=== PATIENT | female | born 1960 | race Caucasian/White ===

== ENCOUNTER → 2017-01-27 | Outpatient (CLI) | payer OTHER ==
[2017-01-27 16:41] LABS: Urine Bilirubin Negative (Negative); Urine Blood Negative /uL (Negative); Urine Color Colorless (Yellow); Urine Glucose Normal (Normal); Urine Ketone Negative (Negative); Urine Nitrite Negative (Negative); Urine Urobilinogen Normal (Negative); Urine pH 7.5 (5.0-8.0)
[2017-01-27 16:42] LABS: Basophils # (auto) 0 uL; Basophils % (auto) 0.6 % (0.0-2.0); Eosinophils # (auto) 0 uL; Eosinophils % (auto) 0.9 % (0.0-7.0); Hematocrit 40.9 % (36.0-46.0); Hemoglobin 13.6 g/dL (12.2-16.2); Lymphocytes # (auto) 1.4 uL; Lymphocytes % (auto) 35.9 % (10.0-50.0); Mean Corpuscular Hemoglobin 31.2 pg (28.0-32.0); Mean Corpuscular Hgb Conc. 33.3 g/dL (32.0-36.0); Mean Corpuscular Volume 93.7 fL (80.0-100.0); Mean Platelet Volume 11.1 fL (7.4-10.4); Monocytes # (auto) 0.2 uL; Monocytes % (auto) 5.1 % (0.0-12.0); Neutrophils # (auto) 2.3 uL; Neutrophils % (auto) 57.5 % (37.0-80.0); Platelet Count (auto) 235 10^3/uL (140-450)
[2017-01-27 16:52] LABS: Partial Thromboplastin Time 31.5 sec (22.64-33.71); Prothrombin Time 10.8 sec (9.37-12.3)
[2017-01-27 17:03] LABS: BUN/Creatinine Ratio 26.4; Bilirubin, Direct 0.1 mg/dL (0-0.2); Bilirubin, Total 0.3 mg/dL (0.2-1.0); Calcium 8.9 mg/dL (8.5-10.1); Magnesium 2.3 mg/dL (1.6-2.6); Potassium 3.5 mmol/L (3.5-5.1)
== END | disposition home or self-care (01) ==
LOC: CHF HDHVI 11:11
PROVIDERS: ATTEND Internal Medicine Cardiovascular Disease
DX: I10 Essential (primary) hypertension (principal); E78.00 Pure hypercholesterolemia, unspecified; K74.1 Hepatic sclerosis; E11.9 Type 2 diabetes mellitus without complications; E03.9 Hypothyroidism, unspecified; D64.9 Anemia, unspecified; E55.9 Vitamin D deficiency, unspecified; N39.0 Urinary tract infection, site not specified; R79.1 Abnormal coagulation profile
CPT/HCPCS: 36415; 80048; 80061; 80076; 81003; 82306; 83735; 84443; 85025; 85610; 85730; 87086; 93005; G0463

== ENCOUNTER → 2017-02-18 | Outpatient (CLI) | payer OTHER ==
[2017-02-18 17:36] LABS: BUN/Creatinine Ratio 26.4; Calcium 8.8 mg/dL (8.5-10.1); Potassium 3.8 mmol/L (3.5-5.1)
== END | disposition home or self-care (01) ==
LOC: CHF HDHVI 15:06
PROVIDERS: ATTEND Internal Medicine Cardiovascular Disease
DX: I10 Essential (primary) hypertension (principal)
CPT/HCPCS: 36415; 80048

== ENCOUNTER → 2017-04-02 | Outpatient (CLI) | payer OTHER ==
[2017-04-02 12:27] LABS: Basophils # (auto) 0 uL; Basophils % (auto) 0.7 % (0.0-2.0); CONDITION Y; Eosinophils # (auto) 0.1 uL; Eosinophils % (auto) 1.3 % (0.0-7.0); Hematocrit 38.7 % (36.0-46.0); Hemoglobin 13.2 g/dL (12.2-16.2); Lymphocytes # (auto) 1.1 uL; Lymphocytes % (auto) 28.3 % (10.0-50.0); Mean Corpuscular Hemoglobin 31.2 pg (28.0-32.0); Mean Corpuscular Volume 91.8 fL (80.0-100.0); Mean Platelet Volume 9.6 fL (7.4-10.4); Monocytes # (auto) 0.3 uL; Monocytes % (auto) 7.8 % (0.0-12.0); Neutrophils # (auto) 2.4 uL; Neutrophils % (auto) 61.9 % (37.0-80.0); Platelet Count (auto) 270 10^3/uL (140-450); Red Cell Distribution Width 12.5 % (11.6-16.0); White Blood Cell 3.9 10^3/uL (4.4-10.8)
[2017-04-02 12:51] LABS: Albumin 3.9 g/dL (3.4-5.0); Alkaline Phosphatase 48 U/L (45-117); Anion Gap 6 (5-15); Aspartate Aminotransferase 16 U/L (15-37); BUN/Creatinine Ratio 28.6; Bilirubin, Direct < 0.1 mg/dL (0-0.2); Bilirubin, Total 0.3 mg/dL (0.2-1.0); Blood Urea Nitrogen 16 mg/dL (7-18); Carbon Dioxide 26 mmol/L (21-32); Chloride 101 mmol/L (98-107); Cholesterol 268 mg/dL (< 200); GFR African American 144 mL/min; GFR Non-African American 119 mL/min; Glucose 92 mg/dL (74-106); HDL Cholesterol 99 mg/dL (40-59); LDL Cholesterol 152 mg/dL (< 100); Magnesium 2.4 mg/dL (1.6-2.6); Sodium 133 mmol/L (136-145); Total Protein 7.2 g/dL (6.4-8.2); Triglycerides 40 mg/dL (< 150)
== END | disposition home or self-care (01) ==
LOC: CHF HDHVI 11:13
PROVIDERS: ATTEND Internal Medicine Cardiovascular Disease
DX: I10 Essential (primary) hypertension (principal); E03.9 Hypothyroidism, unspecified; E78.00 Pure hypercholesterolemia, unspecified; E83.40 Disorders of magnesium metabolism, unspecified; D64.9 Anemia, unspecified
CPT/HCPCS: 36415; 80048; 80061; 80076; 83735; 84443; 85025

== ENCOUNTER → 2017-06-18 | Outpatient (CLI) | payer OTHER ==
[2017-06-18 13:06] LABS: Basophils # (auto) 0 uL; Basophils % (auto) 0.9 % (0.0-2.0); Eosinophils # (auto) 0 uL; Eosinophils % (auto) 1.1 % (0.0-7.0); Hemoglobin 14.2 g/dL (12.2-16.2); Lymphocytes # (auto) 1.2 uL; Lymphocytes % (auto) 34.4 % (10.0-50.0); Mean Corpuscular Hemoglobin 29.9 pg (28.0-32.0); Mean Corpuscular Hgb Conc. 33.7 g/dL (32.0-36.0); Mean Corpuscular Volume 88.7 fL (80.0-100.0); Mean Platelet Volume 10.5 fL (6.9-10.8); Monocytes # (auto) 0.3 uL; Monocytes % (auto) 8.4 % (0.0-12.0); Neutrophils # (auto) 1.9 uL; Neutrophils % (auto) 55.2 % (37.0-80.0); Nucleated Red Blood Cells % 0.1 %; Platelet Count (auto) 247 10^3/uL (140-450); Red Cell Distribution Width 13.4 % (11.8-14.3); Urine Bilirubin Negative (Negative); Urine Blood Negative /uL (Negative); Urine Color Yellow (Yellow); Urine Glucose Normal (Normal); Urine Ketone Negative (Negative); Urine Nitrite Negative (Negative); Urine Urobilinogen Normal (Negative); White Blood Cell 3.4 10^3/uL (4.4-10.8)
[2017-06-18 13:24] LABS: Albumin 4.1 g/dL (3.4-5.0); BUN/Creatinine Ratio 30.2; Bilirubin, Direct 0.1 mg/dL (0-0.2); Bilirubin, Total 0.2 mg/dL (0.2-1.0); Calcium 9.4 mg/dL (8.5-10.1); Magnesium 2.4 mg/dL (1.6-2.6); Potassium 4.2 mmol/L (3.5-5.1); Total Protein 7.7 g/dL (6.4-8.2)
== END | disposition home or self-care (01) ==
LOC: CHF HDHVI 11:23
PROVIDERS: ATTEND Internal Medicine Cardiovascular Disease
DX: I10 Essential (primary) hypertension (principal); E78.00 Pure hypercholesterolemia, unspecified; K74.1 Hepatic sclerosis; E11.9 Type 2 diabetes mellitus without complications; E03.9 Hypothyroidism, unspecified; D64.9 Anemia, unspecified; E55.9 Vitamin D deficiency, unspecified; N39.0 Urinary tract infection, site not specified
CPT/HCPCS: 36415; 80048; 80061; 80076; 81003; 82306; 83036; 83735; 84443; 85025

== ENCOUNTER → 2020-09-19 | Outpatient (CLI) | payer BC | END | disposition home or self-care (01) | LOC: LAB 15:46 | PROVIDERS: ATTEND Obstetrics & Gynecology | DX: Z20.828 Contact with and (suspected) exposure to other viral communicable diseases (principal) | CPT/HCPCS: C9803; U0003 ==

== ENCOUNTER → 2020-12-10 | Outpatient (CLI) | payer BC | END | disposition home or self-care (01) | LOC: LAB 09:32 | PROVIDERS: ATTEND Physician Assistant | DX: Z20.822 Contact with and (suspected) exposure to COVID-19 (principal) ==

== ENCOUNTER → 2024-06-15 | Outpatient (CLI) | payer BC ==
[2024-06-15 14:10] LABS: Basophils # (auto) 0 10 ^3/uL (0-0.2); Basophils % (auto) 0.9 % (0.0-2.0); Eosinophils # (auto) 0.1 10 ^3/uL (0-0.8); Eosinophils % (auto) 1.2 % (0.0-7.0); Hemoglobin 14.9 g/dL (12.2-16.2); Lymphocytes # (auto) 1.5 10 ^3/uL (0.4-5.4); Lymphocytes % (auto) 28.5 % (10.0-50.0); Mean Corpuscular Hemoglobin 33.5 pg (28.0-32.0); Mean Corpuscular Hgb Conc. 34.7 g/dL (32.0-36.0); Mean Corpuscular Volume 96.4 fL (80.0-100.0); Monocytes # (auto) 0.6 10 ^3/uL (0-1.3); Monocytes % (auto) 11.3 % (0.0-12.0); Neutrophils # (auto) 3.1 10 ^3/uL (1.6-8.6); Neutrophils % (auto) 58.1 % (37.0-80.0); Platelet Count (auto) 212 10^3/uL (140-450); Red Blood Cells 4.46 10^6/uL (4.0-5.20); Red Cell Distribution Width 12.8 % (11.8-14.3); White Blood Cell 5.3 10^3/uL (4.4-10.8)
[2024-06-15 14:31] LABS: Alanine Aminotransferase 24 U/L (7-40); Albumin 4.8 g/dL (3.2-4.8); Alkaline Phosphatase 45 U/L (46-116); Anion Gap 4 (5-15); Aspartate Aminotransferase 19 U/L (13-40); BUN/Creatinine Ratio 18.2 (10.0-20.0); Bilirubin, Total 0.4 mg/dL (0.2-1.0); Blood Urea Nitrogen 12 mg/dL (9-23); Calcium 10.3 mg/dL (8.7-10.4); Carbon Dioxide 28 mmol/L (20-30); Chloride 102 mmol/L (98-107); Glucose 101 mg/dL (74-106); Potassium 4.7 mmol/L (3.5-5.1); Sodium 134 mmol/L (136-145); Total Protein 7.1 g/dL (5.7-8.2)
== END | disposition home or self-care (01) ==
LOC: LAB 13:49
PROVIDERS: ATTEND Obstetrics & Gynecology
DX: R53.83 Other fatigue (principal)
CPT/HCPCS: 36415; 80053; 83735; 84443; 85025